=== PATIENT | female | born 1995 | race Caucasian/White ===

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

== ENCOUNTER 2019-07-27 15:41 | Emergency (ER) | payer BC ==
[~2019-07-27] VITALS: Ht 160 cm; Wt 63.6 kg
[2019-07-27 15:58] VITALS: BP 115/80; TEMP 97.6
[2019-07-27 16:33] LABS: BASO % 0.6 % (0.0-2.0); EOS # 0.1 (0.0-0.7); EOS % 1.8 % (0-4.0); GRAN # 4.4 (1.4-6.5); GRAN % 67.3 % (42.2-75.2); HEMATOCRIT 45.3 % (37.0-47.0); HEMOGLOBIN 15.3 g/dl (12.5-16.0); LYMPH # 1.5 (1.2-3.4); LYMPH % 23.5 % (20.0-51.0); MEAN CELL VOLUME 89 fl (80.0-100.0); MEAN CORPUSCULAR HEMOGLOBIN 30 pg (27.0-31.0); MEAN CORPUSCULAR HGB CONC 34 g/dl (33.0-37.0); MEAN PLATELET VOLUME 10.7 fl (7.4-10.4); MONO # 0.4 (0.1-0.6); MONO % 6.6 % (1.7-9.3); PLATELET COUNT 302 K/mm3 (130-400); RED BLOOD COUNT 5.07 M/mm3 (4.10-5.30); REDCELL DISTRIBUTION WIDTH-CV 12.8 % (11.5-14.5)
[2019-07-27 16:37] LABS: ALBUMIN 4.5 gm/dL (3.5-5.0); BILIRUBIN,TOTAL 0.6 mg/dL (0.0-1.0); CALCIUM 9.8 mg/dL (8.4-10.2); CREATININE, serum 0.74 (0.52-1.25); POTASSIUM 4.3 mmol/L (3.4-5.0); TOTAL PROTEIN 8.2 gm/dL (6.4-8.2)
[2019-07-27 17:28] LABS: COLLECTION METHOD CLEAN CATCH
[2019-07-27 17:35] LABS: PH 5 (5-8); SQUAMOUS EPITHELIAL >50 /hpf; URINE APPEARANCE Turbid; URINE BACTERIA Occasional /hpf; URINE BILIRUBIN Negative (NEGATIVE); URINE BLOOD 2+ (NEGATIVE); URINE COLOR Amber; URINE GLUCOSE Negative (NEGATIVE); URINE KETONE 1+ (NEGATIVE); URINE LEUKOCYTE ESTERASE 2+ (NEGATIVE); URINE NITRATE Negative (NEGATIVE); URINE PROTEIN(semi-quant) 2+ (NEGATIVE); URINE UROBILINOGEN Negative (NEGATIVE)
[2019-07-27] MEDS ORDERED: ZOFRAN 4MG T4 MG/TAB PO (17:47)
[2019-07-27] MEDS ORDERED: CARAFATE 1GM1 G PO (17:47)
[2019-07-27 18:06] VITALS: PULSE 73
== END 2019-07-27 18:08 | disposition home or self-care (01) ==
LOC: COL.ER 15:41
PROVIDERS: Emergency Medicine
DX: R10.13 Epigastric pain (principal); R11.0 Nausea; F17.290 Nicotine dependence, other tobacco product, uncomplicated; F17.210 Nicotine dependence, cigarettes, uncomplicated
CPT/HCPCS: J2405

== ENCOUNTER 2019-09-12 22:18 | Emergency (ER) | payer BC ==
[~2019-09-12] VITALS: Ht 160 cm; Wt 61.4 kg
[~2019-09-12 22:18] MED LIST: CARAFATE 1GM1 G PO; ZOFRAN 4MG T4 MG/TAB PO
[2019-09-12 22:22] VITALS: TEMP 98.9
[2019-09-12 23:06] VITALS: BP 118/74; PULSE 99
== END 2019-09-12 23:15 | disposition home or self-care (01) ==
LOC: COL.ER 22:18
DX: T74.21XA Adult sexual abuse, confirmed, initial encounter (principal); M54.2 Cervicalgia; R07.89 Other chest pain

== ENCOUNTER 2019-09-13 18:39 | Outpatient (CLI) | payer BC ==
[2019-09-14] MEDS ORDERED: PROZAC 20MG20 MG PO (00:49)
== END 2019-09-14 00:20 | disposition home or self-care (01) ==
LOC: LDRO 18:39 → LDR 18:39 → LDRO 09-14 00:20
DX: Z04.41 Encounter for examination and observation following alleged adult rape (principal)
CPT/HCPCS: OP; J0696

== ENCOUNTER 2019-09-14 00:30 | Emergency (ER) | payer BC ==
[~2019-09-14] VITALS: Ht 160 cm; Wt 61.4 kg
[2019-09-14 00:32] VITALS: BP 105/73; PULSE 76; TEMP 98.2
[2019-09-14] MEDS ORDERED: PROZAC 20MG20 MG PO (00:49)
== END 2019-09-14 01:37 | disposition home or self-care (01) ==
LOC: COL.ER 00:30
DX: F41.9 Anxiety disorder, unspecified (principal); F32.9 Major depressive disorder, single episode, unspecified; T76.21XA Adult sexual abuse, suspected, initial encounter; F17.290 Nicotine dependence, other tobacco product, uncomplicated

== ENCOUNTER → 2020-04-02 | Outpatient (CLI) | payer BC ==
[~2020-04-02] MED LIST changes: +CEFTIN500 MG PO; +NORCO 325 MG-51 TAB PO; +PROZAC 20MG20 MG PO
== END ==
LOC: COL.RAD 10:57
DX: J34.89 Other specified disorders of nose and nasal sinuses (principal)

== ENCOUNTER 2020-06-14 12:41 | Emergency (ER) | payer BC ==
[~2020-06-14] VITALS: Ht 160 cm; Wt 54.5 kg
[~2020-06-14 12:41] MED LIST changes: -CEFTIN500 MG PO; -NORCO 325 MG-51 TAB PO
[2020-06-14 12:49] VITALS: TEMP 97.9
[2020-06-14 13:23] LABS: COLLECTION METHOD CLEAN CATCH
[2020-06-14 13:27] LABS: BASO % 0.5 % (0.0-2.0); EOS % 0.4 % (0-4.0); GRAN # 6.1 (1.4-6.5); GRAN % 73.7 % (42.2-75.2); HEMATOCRIT 42.1 % (37.0-47.0); HEMOGLOBIN 14.2 g/dl (12.5-16.0); LYMPH # 1.5 (1.2-3.4); LYMPH % 18.3 % (20.0-51.0); MEAN CELL VOLUME 88 fl (80.0-100.0); MEAN CORPUSCULAR HEMOGLOBIN 30 pg (27.0-31.0); MEAN CORPUSCULAR HGB CONC 34 g/dl (33.0-37.0); MEAN PLATELET VOLUME 10.3 fl (7.4-10.4); MONO # 0.6 (0.1-0.6); MONO % 6.6 % (1.7-9.3); PLATELET COUNT 319 K/mm3 (130-400); RED BLOOD COUNT 4.81 M/mm3 (4.10-5.30); REDCELL DISTRIBUTION WIDTH-CV 13.3 % (11.5-14.5)
[2020-06-14 13:32] LABS: MUCOUS Present /lpf; PH 6 (5-8); URINE APPEARANCE Hazy; URINE BACTERIA Rare /hpf; URINE BILIRUBIN Negative (NEGATIVE); URINE BLOOD 2+ (NEGATIVE); URINE COLOR Yellow; URINE GLUCOSE Negative (NEGATIVE); URINE KETONE Negative (NEGATIVE); URINE LEUKOCYTE ESTERASE Trace (NEGATIVE); URINE NITRATE Negative (NEGATIVE); URINE PROTEIN(semi-quant) Negative (NEGATIVE); URINE RBC >50 /hpf; URINE UROBILINOGEN Negative (NEGATIVE)
[2020-06-14 13:39] LABS: ALBUMIN 4.4 gm/dL (3.5-5.0); BILIRUBIN,TOTAL 0.5 mg/dL (0.0-1.0); C-REACTIVE PROTEIN 0.7 mg/dL (0.0-0.9); CALCIUM 9.5 mg/dL (8.4-10.2); CREATININE, serum 0.55 (0.52-1.25); POTASSIUM 4.1 mmol/L (3.4-5.0); TOTAL PROTEIN 7.8 gm/dL (6.4-8.2)
[2020-06-14] MEDS ORDERED: CEFTIN500 MG PO (13:58)
[2020-06-14] MEDS ORDERED: NORCO 325 MG-51 TAB PO (14:33)
[2020-06-14 15:02] VITALS: BP 102/70; PULSE 96
== END 2020-06-14 15:02 | disposition home or self-care (01) ==
LOC: COL.ER 12:41
PROVIDERS: Physician Assistant
DX: N12 Tubulo-interstitial nephritis, not specified as acute or chronic (principal); N39.0 Urinary tract infection, site not specified; F17.290 Nicotine dependence, other tobacco product, uncomplicated; Z32.02 Encounter for pregnancy test, result negative
CPT/HCPCS: J0696; J2405; J3010; J7030